=== PATIENT | female | born 1950 | race Caucasian/White ===

== ENCOUNTER 2023-04-05 13:48 | Outpatient (RCR) | payer MEDICARE, SELFPAY ==
[2023-04-05 13:56] VITALS: BP 118/72; PULSE 73; O2SAT 97
== END 2023-05-14 11:06 | disposition home or self-care (01) ==
LOC: HO.PTCHIC 13:48
PROVIDERS: PCP Internal Medicine; Visit Provider Internal Medicine
DX: R42 Dizziness and giddiness (principal)
CPT/HCPCS: 97112; 97162